=== PATIENT | female | born 1985 | race Caucasian/White ===

== ENCOUNTER → 2016-11-19 | Outpatient (CLI) | payer OTHER ==
--- NOTE | 2016-11-19 13:51 | RAD ---
EXAM: Pelvis one view. HISTORY: Sacral fracture. Left sacral pain. COMPARISON: MRI 08/07/2016. FINDINGS: There is only mild sclerosis of the left sacral aorta at the site of the previously noted left sacral fracture on prior MRI. No displaced fracture is appreciated on the right. The sacroiliac joints and pubic symphysis are normally aligned. The joint spaces and alignment of both hips are maintained. IMPRESSION: 1. Only mild sclerosis is seen at the site of the previously noted left sacral fracture. No evidence of right sacral fracture. MRI is more sensitive for insufficiency lesions if there is persistent concern.
== END | disposition home or self-care (01) ==
LOC: RAD 12:51
PROVIDERS: ATTEND Thoracic Surgery (Cardiothoracic Vascular Surgery)
DX: M53.3 Sacrococcygeal disorders, not elsewhere classified (principal); Z87.81 Personal history of (healed) traumatic fracture
CPT/HCPCS: 72170

== ENCOUNTER → 2018-09-30 | Outpatient (CLI) | payer OTHER ==
--- NOTE | 2018-09-30 18:23 | RAD ---
EXAM: MRI right shoulder DATE: 09/30/2018 2:45 PM COMPARISON: None INDICATION: CHRONIC RIGHT SHOULDER PAIN. NO SX HX. TECHNIQUE: Multiplanar multisequence MR imaging of the right shoulder was performed without IV contrast FINDINGS: AC joint is congruent. Mild lateral downsloping of the distal acromion. Type II acromion. Subacromial-subdeltoid bursal edema likely bursitis. Mild increased signal is seen within the distal infraspinatus tendon. This is in the region of T1/T2 hypointense signal measuring approximately 1 x 0.9 cm. This is most consistent with calcific tendinitis with mild associated infraspinatus edema. Intra-articular long head biceps tendon is normal in signal and morphology. The extra articular long head biceps tendon is seen within the bicipital groove. This limited evaluation of the labrum, no discrete labral tear is seen. No evidence of fracture or AVN. Survey of articular cartilage within normal limits IMPRESSION: 1. 1 cm signal void within the distal radius tendon with associated subacromial-subdeltoid bursal edema and infraspinatus edema is consistent with calcific tendinitis. 2. No rotator cuff tear. Electronically signed by: Kamron Rooney MD (09/30/2018 6:18 PM) [id number]
== END | disposition home or self-care (01) ==
LOC: MRI 14:34
PROVIDERS: ATTEND Thoracic Surgery (Cardiothoracic Vascular Surgery)
DX: M75.31 Calcific tendinitis of right shoulder (principal); G89.29 Other chronic pain; R60.0 Localized edema
CPT/HCPCS: 73221